=== PATIENT | female | born 1965 | race African-American/Black ===

== ENCOUNTER 2022-08-05 14:33 | Emergency (ER) | payer MEDICAID, OTHER ==
[~2022-08-05] VITALS: Ht 157.5 cm; Wt 65.0 kg
[2022-08-05 14:37] VITALS: BP 122/93
[2022-08-05] MEDS ORDERED: ACETAMINOPHEN 325MG TABLET PO ONE (17:15)
[2022-08-05 17:46] LABS: CLARITY URINE CLEAR (CLEAR); COLOR URINE YELLOW (YELLOW); KETONES URINE TRACE (NEGATIVE); LEUKOCYTE ESTERASE URINE TRACE (NEGATIVE); NITRITE URINE NEGATIVE (NEGATIVE); OCCULT BLOOD URINE NEGATIVE (NEGATIVE); PROTEIN URINE TRACE (NEGATIVE); SPECIFIC GRAVITY URINE 1.024 (1.005-1.030)
[2022-08-05 18:07] LABS: EOSINOPHILS % 0.6 % (0.0-5.0); HEMATOCRIT. 43.6 % (36.0-48.0); HEMOGLOBIN. 13.9 g/dL (12.0-16.0); LYMPHOCYTES % 15.3 % (20.0-50.0); MEAN CORPUSCULAR HEMOGLOBIN 25.8 pg (28.0-32.0); MEAN CORPUSCULAR VOLUME 81.1 fL (81.0-99.0); NEUTROPHILS % 71.1 % (40.0-76.0); PLATELET 220 x1000/uL (130-400); RED BLOOD CELL COUNT 5.38 mill/uL (4.2-5.4); RED CELL DISTRIBUTION WIDTH 15.7 % (11.6-14.6)
[2022-08-05 18:17] LABS: CHLORIDE 108 mEq/L (98-107)
[2022-08-05] MEDS ORDERED: D-ME118S48 PO (20:11)
== END 2022-08-05 20:36 | disposition home or self-care (01) ==
LOC: ER 14:33
DX: B34.9 Viral infection, unspecified (principal); M79.18 Myalgia, other site; R05.9 Cough, unspecified; R50.9 Fever, unspecified; Z90.710 Acquired absence of both cervix and uterus; Z20.822 Contact with and (suspected) exposure to COVID-19
CPT/HCPCS: 36415; 71045; 80053; 81003; 84484; 85025; 87426; 99284